=== PATIENT | male | born 1940 | race Caucasian/White ===

== ENCOUNTER 2017-06-01 11:44 | Emergency (ER) | payer MEDICARE, BC ==
[~2017-06-01] VITALS: Ht 180.3 cm; Wt 97.5 kg
[~2017-06-01 11:44] MED LIST: ATE50T PO; PANT1INJ3 PO; WARF4TAB31 PO
[2017-06-01 12:54] VITALS: BP 155/98
[2017-06-01] MEDS ORDERED: TETANUS-DIPTH-ACEL PERTUSSIS 0.5ML SYRG IM ONE (13:15)
== END 2017-06-01 14:20 | disposition home or self-care (01) ==
LOC: ER 11:44
DX: S61.411A Laceration without foreign body of right hand, initial encounter (principal); K21.9 Gastro-esophageal reflux disease without esophagitis; X58.XXXA Exposure to other specified factors, initial encounter; Y93.89 Activity, other specified; Y92.89 Other specified places as the place of occurrence of the external cause; Y99.8 Other external cause status; Z79.899 Other long term (current) drug therapy; Z90.49 Acquired absence of other specified parts of digestive tract
CPT/HCPCS: 12002; 90471; 90715; 94761

== ENCOUNTER 2018-09-22 14:07 | Inpatient (IN) | payer MEDICARE, BC | END 2018-09-25 14:00 | disposition home or self-care (01) | LOC: ER 14:07 → TELE-CENTR 16:52 | DX: J18.9 Pneumonia, unspecified organism (principal); K21.9 Gastro-esophageal reflux disease without esophagitis; I12.9 Hypertensive chronic kidney disease with stage 1 through stage 4 chronic kidney disease, or unspecified chronic kidney disease; N18.3 Chronic kidney disease, stage 3 (moderate); I11.0 Hypertensive heart disease with heart failure ==

== ENCOUNTER → 2020-04-11 | Outpatient (CLI) | payer MEDICARE, BC ==
[~2020-04-11] MED LIST changes: -PANT1INJ3 PO; +PANT40TA2 PO; +WARF4TAB2 PO; -WARF4TAB31 PO; +ZOLP10TA PO
[2020-04-11 10:39] LABS: Basophils # (auto) 0 10 ^3/uL (0-0.2); Basophils % (auto) 0.3 % (0.0-2.0); Eosinophils # (auto) 0.1 10 ^3/uL (0-0.8); Hematocrit 42.3 % (41.0-53.0); Hemoglobin 14.4 g/dL (13.5-17.5); Lymphocytes # (auto) 1.1 10 ^3/uL (0.4-5.4); Mean Corpuscular Hgb Conc. 34.2 g/dL (32.0-36.0); Mean Corpuscular Volume 99.5 fL (80.0-100.0); Monocytes # (auto) 0.5 10 ^3/uL (0-1.3); Monocytes % (auto) 11.2 % (0.0-12.0); Neutrophils # (auto) 2.7 10 ^3/uL (1.6-8.6); Neutrophils % (auto) 60.5 % (37.0-80.0); Platelet Count (auto) 114 10^3/uL (140-450); Red Blood Cells 4.25 10^6/uL (4.5-5.90); Red Cell Distribution Width 14.8 % (11.8-14.3); White Blood Cell 4.5 10^3/uL (4.4-10.8)
== END | disposition home or self-care (01) ==
LOC: LAB 10:17
PROVIDERS: ATTEND Orthopaedic Surgery Sports Medicine
DX: M25.561 Pain in right knee (principal); I10 Essential (primary) hypertension
CPT/HCPCS: 36415; 85025; 85652; 86141

== ENCOUNTER → 2021-03-19 | Outpatient (CLI) | payer MEDICARE, BC ==
[~2021-03-19] VITALS: Ht 180.3 cm; Wt 95.7 kg
[~2021-03-19] MED LIST changes: +ADENOSINE 80 MG in GIVE UN-DILUTED 0 ML IV STA
[2021-03-19 09:16] VITALS: BP 149/71
== END | disposition home or self-care (01) ==
LOC: XY 08:09
PROVIDERS: ATTEND Internal Medicine
DX: Z01.810 Encounter for preprocedural cardiovascular examination (principal)
CPT/HCPCS: 78452; 93017; A9500; J0153

== ENCOUNTER 2021-12-16 02:26 | Emergency (ER) | payer MEDICARE, BC ==
[~2021-12-16] VITALS: Ht 182.9 cm; Wt 97.5 kg
[~2021-12-16 02:26] MED LIST changes: -ADENOSINE 80 MG in GIVE UN-DILUTED 0 ML IV STA
[2021-12-16 02:30] VITALS: BP 122/95
[2021-12-16 05:08] LABS: Basophils # (auto) 0 10 ^3/uL (0-0.2); Basophils % (auto) 0.2 % (0.0-2.0); Eosinophils # (auto) 0 10 ^3/uL (0-0.8); Eosinophils % (auto) 0.1 % (0.0-7.0); Hematocrit 43.3 % (41.0-53.0); Hemoglobin 14.5 g/dL (13.5-17.5); Lymphocytes # (auto) 0.6 10 ^3/uL (0.4-5.4); Lymphocytes % (auto) 3.8 % (10.0-50.0); Mean Corpuscular Hgb Conc. 33.5 g/dL (32.0-36.0); Mean Corpuscular Volume 98.5 fL (80.0-100.0); Monocytes # (auto) 1.1 10 ^3/uL (0-1.3); Monocytes % (auto) 6.7 % (0.0-12.0); Neutrophils # (auto) 14.2 10 ^3/uL (1.6-8.6); Neutrophils % (auto) 89.2 % (37.0-80.0); Red Blood Cells 4.39 10^6/uL (4.5-5.90); Red Cell Distribution Width 14.4 % (11.8-14.3); White Blood Cell 15.9 10^3/uL (4.4-10.8)
[2021-12-16 05:29] LABS: Albumin 3.7 g/dL (3.4-5.0); Calcium 8.4 mg/dL (8.5-10.1); Potassium 4.2 mmol/L (3.5-5.1)
[2021-12-16 05:33] LABS: BUN/Creatinine Ratio 13.4; Bilirubin, Total 1.9 mg/dL (0.2-1.0)
== END 2021-12-16 05:55 | disposition home or self-care (01) ==
LOC: ER 02:26
DX: R11.2 Nausea with vomiting, unspecified (principal); A05.9 Bacterial foodborne intoxication, unspecified; R94.31 Abnormal electrocardiogram [ECG] [EKG]; Z20.822 Contact with and (suspected) exposure to COVID-19
CPT/HCPCS: 36415; 71045; 80053; 83605; 83735; 83880; 84484; 85025; 93005

== ENCOUNTER 2021-12-28 15:38 | Emergency (ER) | payer MEDICARE, BC ==
[~2021-12-28] VITALS: Ht 180.3 cm; Wt 97.9 kg
[2021-12-28 16:33] VITALS: BP 138/89
[2021-12-28] MEDS ORDERED: TETANUS-DIPTH-ACEL PERTUSSIS 0.5ML SYR Tdap IM ONE (17:00)
[2021-12-28] MEDS ORDERED: ACETAMINOPHEN 500 MG TAB PO ONE (17:00)
[2021-12-28] MEDS ORDERED: ACET-1080 PO (17:09)
[2021-12-28] MEDS ORDERED: CEPH-509 PO (17:09)
== END 2021-12-28 17:18 | disposition home or self-care (01) ==
LOC: ER 15:38
DX: S61.412A Laceration without foreign body of left hand, initial encounter (principal); S00.81XA Abrasion of other part of head, initial encounter; W01.0XXA Fall on same level from slipping, tripping and stumbling without subsequent striking against object, initial encounter; Y93.01 Activity, walking, marching and hiking; Y92.89 Other specified places as the place of occurrence of the external cause; Y99.8 Other external cause status
CPT/HCPCS: 90471; 90715

== ENCOUNTER 2021-12-30 12:49 | Emergency (ER) | payer MEDICARE, BC ==
[~2021-12-30] VITALS: Ht 180.3 cm; Wt 98.4 kg
[~2021-12-30 12:49] MED LIST changes: +ACET-1080 PO; +CEPH-509 PO
[2021-12-30 15:36] VITALS: BP 147/91
== END 2021-12-30 16:08 | disposition home or self-care (01) ==
LOC: ER 12:49
DX: S61.412A Laceration without foreign body of left hand, initial encounter (principal); S63.502A Unspecified sprain of left wrist, initial encounter; I50.9 Heart failure, unspecified; I48.91 Unspecified atrial fibrillation; K21.9 Gastro-esophageal reflux disease without esophagitis; Z90.49 Acquired absence of other specified parts of digestive tract; Z79.01 Long term (current) use of anticoagulants; Z79.899 Other long term (current) drug therapy; W01.0XXA Fall on same level from slipping, tripping and stumbling without subsequent striking against object, initial encounter; Y93.89 Activity, other specified; Y92.89 Other specified places as the place of occurrence of the external cause; Y99.8 Other external cause status
CPT/HCPCS: 73110; 73130

== ENCOUNTER 2022-04-29 02:10 | Emergency (ER) | payer MEDICARE, BC ==
[~2022-04-29] VITALS: Ht 180.3 cm; Wt 98.0 kg
[2022-04-29 03:32] LABS: Urine Bacteria FEW /hpf (None Seen); Urine Blood Negative /uL (Negative); Urine Specific Gravity 1.002 (1.001-1.035); Urine WBC <1 /hpf (0 - 3)
[2022-04-29] MEDS ORDERED: PERCOT PO (07:05)
[2022-04-29] MEDS ORDERED: NITR-87 PO (07:05)
[2022-04-29] MEDS ORDERED: cefTRIAXone SOD 1,000 MG VL IM ONE (07:15)
[2022-04-29] MEDS ORDERED: LIDOCAINE 1% HCL (LOCAL ANESTH.) INJ 20ML MDV ONE (07:32)
[2022-04-29 07:58] VITALS: BP 118/91
== END 2022-04-29 08:02 | disposition home or self-care (01) ==
LOC: ER 02:10
DX: K40.90 Unilateral inguinal hernia, without obstruction or gangrene, not specified as recurrent (principal); R10.30 Lower abdominal pain, unspecified; R11.0 Nausea; I50.9 Heart failure, unspecified; K21.9 Gastro-esophageal reflux disease without esophagitis; Z79.899 Other long term (current) drug therapy
CPT/HCPCS: 74176; 81001; 93005; 96372; 99285; J0696; J2001

== ENCOUNTER → 2022-10-22 | Day surgery (SDC) | payer MEDICARE, BC ==
[2022-10-20 15:05] LABS: Basophils # (auto) 0 10 ^3/uL (0-0.2); Basophils % (auto) 0.1 % (0.0-2.0); Eosinophils # (auto) 0.1 10 ^3/uL (0-0.8); Eosinophils % (auto) 1.1 % (0.0-7.0); Hematocrit 40.6 % (41.0-53.0); Hemoglobin 13.9 g/dL (13.5-17.5); Lymphocytes # (auto) 1.5 10 ^3/uL (0.4-5.4); Lymphocytes % (auto) 25.2 % (10.0-50.0); Mean Corpuscular Hemoglobin 32.9 pg (28.0-32.0); Mean Corpuscular Hgb Conc. 34.4 g/dL (32.0-36.0); Mean Corpuscular Volume 95.8 fL (80.0-100.0); Monocytes # (auto) 0.6 10 ^3/uL (0-1.3); Neutrophils # (auto) 3.7 10 ^3/uL (1.6-8.6); Neutrophils % (auto) 63.6 % (37.0-80.0); Nucleated Red Blood Cells % 0.1 %; Red Blood Cells 4.24 10^6/uL (4.5-5.90); Red Cell Distribution Width 14.3 % (11.8-14.3); White Blood Cell 5.8 10^3/uL (4.4-10.8)
[2022-10-20 15:18] LABS: Urine Bacteria NONE SEEN /hpf (None Seen); Urine Blood Negative /uL (Negative); Urine Specific Gravity 1.015 (1.001-1.035); Urine WBC 1 /hpf (0 - 3)
[2022-10-20 15:40] LABS: INR 1.08 (0.9-1.15); Partial Thromboplastin Time 30.9 sec (24.6-33.4)
[2022-10-20 15:43] LABS: Potassium 4.3 mmol/L (3.5-5.1)
[2022-10-20 15:51] LABS: Albumin 3.7 g/dL (3.4-5.0); BUN/Creatinine Ratio 14.5 (10.0-20.0); Bilirubin, Total 1.6 mg/dL (0.2-1.0); Calcium 8.5 mg/dL (8.5-10.1); Total Protein 7.3 g/dL (6.4-8.2)
[~2022-10-22] VITALS: Ht 180.3 cm; Wt 93.4 kg
[~2022-10-22] MED LIST changes: +BUPIVACAINE 0.25% INJ 50ML VIAL ONE; +BUPIVACAINE IMPLANT 3x100mg IL ONE; -CEPH-509 PO; +DexAMETHasone SOD PHOS 10MG/1ML VIAL INJ ONE; +GLYCOPYRROLATE 0.2 MG/ML 1ML VIAL ONE; +HYDROmorphone HCL 2 MG/ML VL/or syr IV PRN; +LIDOCAINE 2% (LOCAL ANESTH.) PF 5ml SDV ONE; +LIDOCAINE W/ EPINEPHRINE 1% 20ML VIAL ONE; +MEPERIDINE HCL (25 MG/ML) 1ML VIAL ONE; +MIDAZOLAM HCL 2MG/2ML 2ml VIAL (1mg/ml) ONE; +ONDANSETRON HCL 4 MG/2 ML VIAL IV PRN; +PROPOFOL 10 MG/ML 20 ML IV ONE; +ceFAZolin 1GM/50ML 100 ML IV ONE; +ePHEDrine SULFATE 50 MG/ML AMP ONE; +fentaNYL CITRATE 100 MCG/2 ML VL ONE
[2022-10-22 11:45] VITALS: BP 132/81
== END | disposition home or self-care (01) ==
LOC: SUR 07:04
PROVIDERS: ATTEND Surgery
DX: K40.90 Unilateral inguinal hernia, without obstruction or gangrene, not specified as recurrent (principal)
CPT/HCPCS: 36415; 49505; 80053; 81001; 85025; 85610; 85730; 86850; 86900; 86901; C1781; C9089; J0690; J1100; J2001; J2175; J2250; J2704; J3010; J3490

== ENCOUNTER 2023-02-07 23:41 | Emergency (ER) | payer MEDICARE, BC ==
[~2023-02-07] VITALS: Ht 180.3 cm; Wt 95.1 kg
[~2023-02-07 23:41] MED LIST changes: -BUPIVACAINE 0.25% INJ 50ML VIAL ONE; -BUPIVACAINE IMPLANT 3x100mg IL ONE; -DexAMETHasone SOD PHOS 10MG/1ML VIAL INJ ONE; -GLYCOPYRROLATE 0.2 MG/ML 1ML VIAL ONE; -HYDROmorphone HCL 2 MG/ML VL/or syr IV PRN; -LIDOCAINE 2% (LOCAL ANESTH.) PF 5ml SDV ONE; -LIDOCAINE W/ EPINEPHRINE 1% 20ML VIAL ONE; -MEPERIDINE HCL (25 MG/ML) 1ML VIAL ONE; -MIDAZOLAM HCL 2MG/2ML 2ml VIAL (1mg/ml) ONE; -ONDANSETRON HCL 4 MG/2 ML VIAL IV PRN; -PROPOFOL 10 MG/ML 20 ML IV ONE; -ceFAZolin 1GM/50ML 100 ML IV ONE; -ePHEDrine SULFATE 50 MG/ML AMP ONE; -fentaNYL CITRATE 100 MCG/2 ML VL ONE
[2023-02-08 02:08] LABS: Basophils # (auto) 0 10 ^3/uL (0-0.2); Basophils % (auto) 0.5 % (0.0-2.0); Eosinophils # (auto) 0 10 ^3/uL (0-0.8); Eosinophils % (auto) 0.3 % (0.0-7.0); Hematocrit 41.5 % (41.0-53.0); Hemoglobin 14.2 g/dL (13.5-17.5); Lymphocytes # (auto) 1.2 10 ^3/uL (0.4-5.4); Lymphocytes % (auto) 15.3 % (10.0-50.0); Mean Corpuscular Hemoglobin 33.5 pg (28.0-32.0); Mean Corpuscular Hgb Conc. 34.3 g/dL (32.0-36.0); Mean Corpuscular Volume 97.9 fL (80.0-100.0); Monocytes # (auto) 0.7 10 ^3/uL (0-1.3); Monocytes % (auto) 9.1 % (0.0-12.0); Neutrophils # (auto) 5.9 10 ^3/uL (1.6-8.6); Neutrophils % (auto) 74.8 % (37.0-80.0); Red Blood Cells 4.24 10^6/uL (4.5-5.90); Red Cell Distribution Width 14.9 % (11.8-14.3); White Blood Cell 7.9 10^3/uL (4.4-10.8)
[2023-02-08 02:25] LABS: INR 1.92 (0.9-1.15); Prothrombin Time 19.3 sec (9.3-11.8)
[2023-02-08 02:59] LABS: Alanine Aminotransferase 22 U/L (7-40); Albumin 4.2 g/dL (3.2-4.8); Alkaline Phosphatase 92 U/L (46-116); Anion Gap 7.2 (5-15); Aspartate Aminotransferase 32 U/L (13-40); BUN/Creatinine Ratio 12.4 (10.0-20.0); Bilirubin, Total 1.1 mg/dL (0.2-1.0); Blood Urea Nitrogen 18 mg/dL (9-23); Calcium 9.2 mg/dL (8.7-10.4); Carbon Dioxide 24.8 mmol/L (20-30); Chloride 111 mmol/L (98-107); Glucose 122 mg/dL (74-106); Potassium 4.5 mmol/L (3.5-5.1); Sodium 143 mmol/L (136-145)
[2023-02-08 04:12] VITALS: BP 123/77; PULSE 91; RESP 17; TEMP 98.2; O2SAT 99
[2023-02-08] MEDS ORDERED: POLY335015 PO (04:42)
== END 2023-02-08 04:58 | disposition home or self-care (01) ==
LOC: ER 23:41
DX: K59.00 Constipation, unspecified (principal); I48.91 Unspecified atrial fibrillation; K21.9 Gastro-esophageal reflux disease without esophagitis; Z90.49 Acquired absence of other specified parts of digestive tract; I11.0 Hypertensive heart disease with heart failure; I50.89 Other heart failure; Z79.899 Other long term (current) drug therapy
CPT/HCPCS: 36415; 74018; 80053; 85025; 85610; 93005

== ENCOUNTER 2025-05-31 17:14 | Emergency (ER) | payer MEDICARE, BC ==
[~2025-05-31] VITALS: Ht 185.4 cm; Wt 130.0 kg
[~2025-05-31 17:14] MED LIST changes: -ACET-1080 PO; -ZOLP10TA PO
--- NOTE | 2025-05-31 19:29 | DVH ---
CHEST RADIOGRAPH INDICATION: Cough TECHNIQUE: Single frontal view of the chest was obtained COMPARISON: CHEST PORTABLE on DOS: 12/16/21, CXRP on DOS: 12/16/21 FINDINGS: Lines and Tubes: None Lungs: No focal consolidation. Pleura: No effusion. No pneumothorax. Cardiomediastinal contours: Unremarkable Bones: No acute osseous abnormality. IMPRESSION: 1. No acute cardiopulmonary disease. 2. No change from 12/16/2021,
--- NOTE | 2025-05-31 19:47 | ED.PDOC ---
History of Present Illness HPI Comments 84-year-old male presents with spouse for chief complaint of cough, congestion, mild shortness of breath, and body aches. Significant history for AFib, CHF - on Warfarin, GERD, HTN, and pneumonia. Per spouse, patient has had cough with congestion and generalized body aches for the past 2-3x days. Today, patient endorses on additional onset of mild dyspnea and coughing up bloody sputum. Denial of any chest pain, fever, lightheadedness, weakness, or further acute symptoms. Patient denies any previous history of smoking in the past. REVIEW OF SYSTEMS: General: No fever, no chills, or fatigue HEENT: No sore throat, no earache, no congestion, no neck pain. Cardiac: No chest pain. No palpitations. Lungs: Shortness of breath, cough, congestion, bloody cough sputum production GI: No nausea, no vomiting, no diarrhea, no constipation, no abdominal pain : No dysuria, frequency, or urgency. No hematuria. Musculoskeletal: Body aches, no joint pain , no joint swelling, no extremity edema. Skin: No rash, no itching. Neuro: No headache, no dizziness, no weakness (And as stated in HPI) PHYSICAL EXAM: General: Awake, alert and oriented. No acute distress. Skin: Skin in warm, dry and intact. Appropriate color for ethnicity. HEENT: The head is normocephalic and atraumatic. Conjunctivae are clear without exudates or hemorrhage. Sclera is non-icteric. Eyelids are normal in appearance without swelling or lesions. Oral mucosa is pink and moist Neck: The neck is supple with normal range of motion. No JVD. Cardiac: Heart rate and rhythm are normal. No murmurs, gallops, or rubs are auscultated. Respiratory: Wet sounding cough. No signs of respiratory distress. Presence of rhonchi lung sounds, bilaterally. Abdominal: Abdomen is soft, non-tender without distention, guarding or rigidity. Bowel sounds are present and normoactive in all four quadrants. Extremities: Lower extremities without edema. Neurological: The patient is awake, alert and oriented to person, place, and time with normal speech. Speech is clear. There is no facial asymmetry. Psychiatric: Appropriate mood and affect. Good judgement and insight Chief Complaint: Cough Time Seen by MD: 18:39 Primary Care Provider: AZUCENA Reviewed Notes: Nurses Notes, Medications, Allergies Allergies: Coded Allergies: NO KNOWN ALLERGIES (Unverified , 03/19/21) Home Meds Active Scripts Azithromycin (Zithromax Z-Ruddy) 250 Mg Tab, 250 MG PO DAILY for 5 Days, #6 TAB Prov:MITALI KERR MD 05/31/25 Reported Medications Pantoprazole Sodium Sesquihydr (Protonix) 40 Mg Tab, 40 MG PO DAILY, #30 TAB 09/22/18 Warfarin Sodium (Coumadin) 4 Mg Tab, 4.5 TAB PO DAILY, #30 TAB 3 Refills 01/06/14 Atenolol (TENORMIN TABLET) 50 Mg Tb, 25 MG PO DAILY, #30 TAB 5 Refills 01/06/14 Information Source: Patient, Spouse Mode of Arrival: Ambulatory Severity: Moderate Timing: Days Duration: Since onset Prehospital treatment: None Past Medical History PAST MEDICAL HISTORY: AFIB, CHF (On warfarin 5 mg), GERD, HTN Past Medical History (Other): Pneumonia Surgical History: Appendectomy Family History Family History: Unknown Social History Smoker: Non-Smoker Alcohol: Denies ETOH Use Drugs: Denies Drug Use Lives In: Home Was a procedure done? Was a procedure done?: No Differential Dx Considerations may include: Differential diagnoses considered includebut arenot limited to acute Bronchitis, Asthma, COPD, Pneumothorax, PE, CHF, Pulmonary HTN, Anemia, CO Poisoning, Methemoglobinemia, Hyperventilation, Metabolic Acidosis, Pulmonary Edema, Pneumonia, ACS, Pericardial Tamponade, Anxiety, other X-Ray, Labs, Meds, VS Vital Signs Date Time Temp Pulse Resp B/P (MAP) Pulse Ox O2 Delivery O2 Flow Rate FiO2 05/31/25 22:18 99.4 114 18 147/88 (107) 94 99.4 05/31/25 22:18 114 18 94 Room Air* 0 21 05/31/25 21:37 20 96 Room Air* 0 21 05/31/25 17:28 97.5 95 20 130/74 94 97.5 Lab Test 05/31/25 20:59 Range/Units Influenza Type A Antigen Negative Negative Influenza Type B Antigen Negative Negative SARS-CoV-2 Antigen (Rapid) Negative NEGATIVE Current Medications Medications (Trade) Dose Ordered Sig/Kehinde Route Start Time Stop Time Status Last Admin Albuterol (Ventolin Medneb) 2.5 mg ONCE ONCE NEB 05/31/25 21:15 05/31/25 21:20 DC 05/31/25 21:37 Ipratropium [place] (Atrovent Medneb) 0.5 mg ONCE ONCE NEB 05/31/25 21:15 05/31/25 21:20 DC 05/31/25 21:37 Azithromycin (Zithromax Tablet) 500 mg ONCE ONCE PO 05/31/25 21:15 05/31/25 21:20 DC 05/31/25 22:29 [place] [id number] Ph: [phone] DIAGNOSTIC IMAGING Diagnostic Imaging Report : [id number] Signed PATIENT: CAPRI TAVAREZ ACCT: [id number] UNIT: [id number] : 1940 LOC: ER ROOM / BED: / AGE / SEX: 84 / M ADM STATUS: REG ER SERVICE 41 ORDERING PHYSICIAN: MITALI KERR MD PROCEDURE(s): CXR1 - CHEST XRAY 1 VIEW REASON: Cough ORDER NUMBER(s): [id number], ACCESSION NUMBER(s): [id number] CHEST RADIOGRAPH INDICATION: Cough TECHNIQUE: Single frontal view of the chest was obtained COMPARISON: CHEST PORTABLE on DOS: 12/16/21, CXRP on DOS: 12/16/21 FINDINGS: Lines and Tubes: None Lungs: No focal consolidation. Pleura: No effusion. No pneumothorax. Cardiomediastinal contours: Unremarkable Bones: No acute osseous abnormality. IMPRESSION: 1. No acute cardiopulmonary disease. 2. No change from 12/16/2021, ATED BY: JAD GRANT Jr., DO DICTATED DATE/TIME: 05/31/251925 SIGNED BY: JAD GRANT Jr., DO SIGNED DATE/TIME: 05/31/251925 CC: Time of 1ST Reevaluation: 19:46 Reevaluation 1ST: Unchanged Patient Education/Counseling: Treatment, Need For Follow Up Family Education/Counseling: Treatment, Need For Follow Up SEPSIS Sepsis Screen Date sepsis recognized/suspect: May 31, 2025 Time Sepsis recognized/suspect: 1730 Recent Procedure: No On Antibiotic Therapy: No Respiratory Rate >20: No Heart Rate >90: Yes Temp<36 C (96.8 F) or >38.3 C: No SBP <90 or MAP <65 mmHG: No New Acute Mental Status Change: No Is the patient on CPAP, BIPAP,: No Physician Orders Chest Xray 1 View (05/31/25 18:42) Vital Signs Date Time Temp Pulse Resp B/P (MAP) Pulse Ox O2 Delivery O2 Flow Rate FiO2 05/31/25 22:18 99.4 114 18 147/88 (107) 94 99.4 05/31/25 22:18 114 18 94 Room Air* 0 21 05/31/25 21:37 20 96 Room Air* 0 21 05/31/25 17:28 97.5 95 20 130/74 94 97.5 Medications Medications Dose Ordered Sig/Kehinde Route Start Time Stop Time Status Last Admin Dose Admin Albuterol 2.5 mg ONCE ONCE NEB 05/31/25 21:15 05/31/25 21:20 DC 05/31/25 21:37 Azithromycin 500 mg ONCE ONCE PO 05/31/25 21:15 05/31/25 21:20 DC 05/31/25 22:29 Ipratropium [place] 0.5 mg ONCE ONCE NEB 05/31/25 21:15 05/31/25 21:20 DC 05/31/25 21:37 Departure 1 Departure Time of Disposition: 21:16 Impression: Primary Impression: Cough Disposition: HOME / SELF CARE / HOMELESS Condition: Stable Additional Instructions: ED DISCHARGE INSTRUCTIONS Instructions: Please read all instructions provided in this packet carefully. Although you have been discharged from the Emergency Department, this does not mean that you have a "clean bill of health". No definitive diagnosis for your symptoms has been made today. It is possible that you are in the process of de veloping a serious illness. This is why you must return to the ED without fail if any new or worsening symptoms (especially if your symptoms include chest pain, trouble breathing, abdominal pain, fever, headache, confusion, trouble seeing, or trouble walking) It is also very important that you see a primary care provider (PCP) within the next 3 days to follow up. If you are unable to get an appointment, return to the ED for re-evaluation. SHORTNESS OF BREATH EDUCATION Shortness of breath has many causes. Sometimes conditions such as anxiety can lead to shortness of breath. Some people get mild shortness of breath when they exercise. Trouble breathing also can be a symptom of a serious problem, such as asthma, lung disease, emphysema, heart problems, and pneumonia. If your shortness of breath continues, you may need tests and treatment. Watch for any changes in your breathing and other symptoms. Follow-up care is a crowder part of your treatment and safety. Be sure to make and go to all appointments, and call your doctor if you are having problems. It's also a good idea to know your test results and keep a list of the medicines you take. How can you care for yourself at home? Do not smoke or allow others to smoke around you. If you need help quitting, t alk to your doctor about stop-smoking programs and medicines. These can increase your chances of quitting for good. Get plenty of rest and sleep. Take your medicines exactly as prescribed. Call your doctor if you think you are having a problem with your medicine. Find healthy ways to deal with stress. Exercise daily. Get plenty of sleep. Eat regularly and well. When should you call for help? Call 911 anytime you think you may need emergency care. For example, call if: You have severe shortness of breath. You have symptoms of a heart attack. These may include: Chest pain or pressure, or a strange feeling in the chest. Sweating. Shortness of breath. Nausea or vomiting. Pain, pressure, or a strange feeling in the back, neck, jaw, or upper belly or in one or both shoulders or arms. Lightheadedness or sudden weakness. A fast or irregular heartbeat. After you call 911, the carriage operator may tell you to chew 1 adult-strength or 2 to 4 low-dose aspirin. Wait for an ambulance. Do not try to drive yourself. Call your doctor now or seek immediate medical care if: Your shortness of breath gets worse or you start to wheeze. Wheezing is a high-pitched sound when you breathe. You wake up at night out of breath or have to prop your head up on several pillows to breathe. You are short of breath after only light activity or while at rest. Watch closely for changes in your health, and be sure to contact your doctor if: You do not get better over the next 1 to 2 days. Credits for Shortness of Breath: Care Instructions Current as of: January 06, 2024 Author: [employer] Staff e-Prescriptions Azithromycin (Zithromax Z-Ruddy) 250 Mg Tab 250 MG PO DAILY for 5 Days, #6 TAB Prov: MITALI KERR MD 05/31/25 Comments MDM: 84-year-old male with cough, suspected bronchitis. Patient is felt stable for discharge home to follow up with the primary care provider. He is not hypoxic, respiratory distress. Able to ambulate without difficulty. Patient well-appearing, nontoxic. Advised prompt follow-up with PCP, return to the ED with any new, worsening or concerning symptoms. Extensive evaluation was performed in attempt to identify or rule out: (See differential diagnosis section) The following tests were ordered, and results were reviewed by me and discussed with patient: (See diagnostic results section) The following test were independently interpreted by me: Rapid influenza a and B and COVID 19 antigen Jeanne test I reviewed and agreed with the following test results read by other providers: Chest x-ray 1 and 2 view I reviewed the following notes from the pt's past medical encounters: N/A Additional information was gathered from interviewing the following independent historians: Patient's at bedside Decision regarding hospitalization or escalation of hospital level of care: Risks and benefits of admission for further treatment of patient's condition was considered however due to patient's stable condition patient will be discharged to follow up closely or return to care for worsening of condition or inability to follow up. Critical Care Note Critical Care Time?: No Stability Stability form required: No Heart Score Heart Score: Heart Score Response (Comments) Value History N/A 0 EKG N/A 0 Age N/A 0 Risk Factors N/A 0 Troponin N/A 0 Total 0 I personally scribed for MITALI KERR MD ([email or web address]) on 05/31/25 at 19:47. Electronically submitted by Semaj Kemp ([email or web address]). I personally scribed for MITALI KERR MD ([email or web address]) on 05/31/25 at 23:03. Electronically submitted by Semaj Kemp ([email or web address]). I personally scribed for MITALI KERR MD ([email or web address]) on 05/31/25 at 23:03. Electronically submitted by Semaj Kemp ([email or web address]). MITALI KERR MD May 31, 2025 19:47
[2025-05-31] MEDS: ALBUTEROL SULF 2.5 MG/0.5ML(0.5%) NEB SOLN NEB ONE (21:37)
[2025-05-31] MEDS: IPRATROPIUM BROM 0.5 MG/2.5ML INH SOL NEB ONE (21:37)
[2025-05-31 21:55] LABS: COVID19 ANTIGEN SOFIA FIA NEGATIVE (NEGATIVE)
[2025-05-31] MEDS ORDERED: AZITTAB PO (22:11)
[2025-05-31 22:18] VITALS: BP 147/88; PULSE 114; RESP 18; TEMP 99.4; O2SAT 94
[2025-05-31] MEDS: AZITHROMYCIN 250 MG TAB PO ONE (22:29)
== END 2025-05-31 22:30 | disposition home or self-care (01) ==
LOC: ER 17:14
DX: R05.9 Cough, unspecified (principal); I48.91 Unspecified atrial fibrillation; I11.0 Hypertensive heart disease with heart failure; I50.9 Heart failure, unspecified; Z79.899 Other long term (current) drug therapy; Z90.49 Acquired absence of other specified parts of digestive tract; Z20.822 Contact with and (suspected) exposure to COVID-19
CPT/HCPCS: 36415; 71045; 87426; 87804; 94640